=== PATIENT | male | born 1965 ===

== ENCOUNTER 2021-05-03 09:46 | Emergency (ER) | payer MEDICAID ==
[~2021-05-03] VITALS: Ht 182.9 cm; Wt 108.0 kg
[2021-05-03 10:39] VITALS: BP 154/81
[2021-05-03] MEDS ORDERED: LISINOPRIL 20 MG TAB PO ONE (10:45)
== END 2021-05-03 11:11 | disposition home or self-care (01) ==
LOC: ER 09:46
DX: I10 Essential (primary) hypertension (principal); K21.9 Gastro-esophageal reflux disease without esophagitis; F17.210 Nicotine dependence, cigarettes, uncomplicated; Z76.0 Encounter for issue of repeat prescription